=== PATIENT | male | born 1945 | race Caucasian/White ===

== ENCOUNTER → 2021-08-24 09:19 | Outpatient (CLI) | payer MEDICARE, SELFPAY ==
[2021-08-24 13:12] LABS: Influenza Control Positive
[2021-08-24 19:39] LABS: SARS-CoV-2 RNA PCR Negative
== END ==
PROVIDERS: PCP Internal Medicine; Visit Provider Internal Medicine
DX: R09.89 Other specified symptoms and signs involving the circulatory and respiratory systems (principal); Z20.822 Contact with and (suspected) exposure to COVID-19
CPT/HCPCS: 87804; C9803; U0003; U0005

== ENCOUNTER 2021-09-01 12:19 | Outpatient (CLI) | payer MEDICARE, SELFPAY ==
[2021-09-01 13:54] LABS: Influenza A QL RT-PCR Negative (Negative); Influenza B QL RT-PCR Negative (Negative); SARS-CoV-2 RNA PCR Negative (Negative)
== END 2021-09-01 12:20 | disposition home or self-care (01) ==
LOC: CHSLAB 12:23
PROVIDERS: PCP Family Medicine; Visit Provider Internal Medicine
DX: R05.9 Cough, unspecified (principal); Z20.822 Contact with and (suspected) exposure to COVID-19
CPT/HCPCS: 87502; C9803; U0003; U0005

== ENCOUNTER 2022-07-11 01:17 | Day surgery (SDC) | payer MEDICARE, SELFPAY ==
[2022-07-05 11:53] VITALS: BMI 27.6
[2022-07-11 07:28] VITALS: BP 110/67; PULSE 59; RESP 20; TEMP 36.6; O2SAT 100
[2022-07-11 07:53] LABS: Glucose Point of Care 133 mg/dl (65-105)
[2022-07-11] MEDS: LACTATED RINGERS 1,000 ML 150 ML IV CONT (07:53)
--- NOTE | 2022-07-11 08:21 | WPDANESEPPF ---
Anes - Initial Pre Proc Eval Procedure: Operation Date: 07/11/22 08:45 Proposed Procedures p Esophagogastroduodenoscopy & Screening Colonoscopy - Cliff Whyte MD Date/Time: 07/11/22 08:21 Surgeon: Cliff Whyte MD Pre Op Diagnosis: dysphagia, neoplasm screening Patient Data Age: 76 Gender: M Height: 1.85 m Weight: 95.3 kg Last Vital Signs Temp 36.6 C 07/11/22 07:28 Pulse 59 L 07/11/22 07:28 Resp 20 07/11/22 07:28 BP 110/67 07/11/22 07:28 Pulse Ox 100 07/11/22 07:28 O2 Del Method Room Air 07/11/22 07:28 Allergies Allergy/AdvReac Type Severity Reaction Status Date / Time ceftriaxone Allergy Mild Rash Verified 07/11/22 07:37 cephalexin Allergy Mild Rash Verified 07/11/22 07:37 Penicillins Allergy Mild Rash Verified 07/11/22 07:37 Sulfa (Sulfonamide Allergy Mild Rash Verified 07/11/22 07:37 Antibiotics) Home Medications Medication Instructions Recorded Confirmed Type clopidogrel 75 mg tablet (Plavix) 75 mg PO DAILY 06/06/22 07/11/22 History insulin glargine 100 unit/mL (3 45 unit subcut HS 06/06/22 07/11/22 History mL) subcutaneous pen (Lantus Solostar U-100 Insulin) insulin lispro protamine-lispro 1 sliding scale dose subcut 06/06/22 07/11/22 History 100 unit/mL (50-50) subcutaneous USEASDIRECTD susp (Humalog Mix 50-50 Insuln U-100) isosorbide dinitrate 30 mg tablet 30 mg PO DAILY 06/06/22 07/11/22 History lisinopril 5 mg tablet 5 mg PO DAILY 06/06/22 07/11/22 History pantoprazole 40 mg tablet,delayed 40 mg PO QAM 06/06/22 07/11/22 History release rosuvastatin 40 mg tablet (Crestor) 40 mg PO DAILY 06/06/22 07/11/22 History Laboratory Tests 07/11/22 07:48 POC Capillary Glucose 133 mg/dl H mg/dl (65-105) Patient hx anesthesia problems: none Family hx anesthesia problems: none Results Review: All pre-operative results and documents have been reviewed as part of the pre-operative evaluation. [facility] Past Medical History Medical History Bladder cancer CAD (coronary artery disease) Carotid artery disease Cough Diabetes GERD (gastroesophageal reflux disease) Hyperlipidemia Hypertension Peripheral vascular disease TIA (transient ischemic attack) Surgical History Surgical History Status post surgical removal and fulguration of bladder neoplasm Family History Family History Mother Hypertension Family history of elevated blood lipids Family history of diabetes mellitus in first degree relative Father Cerebrovascular accident, Onset Age: 84 Family history of coronary artery disease Patient's father is Social History Social History Smoking status: Never smoker Alcohol intake: current Substance use: never Substance use type: does not use Living arrangements: with family Spiritual care concerns: No Anes - Eval Final PreProcedure Day of Procedure 07/11/22 08:21 Patient weight: overweight Heart: regular rate and rhythm Lungs: clear to auscultation Airway: Mallampati scale class III Neurological: alert and oriented Last oral intake: >/= 8 hours ASA classification: III Emergent: no Anesthetic plan: proceed Anesthesia type and monitoring: general GIVS and standard monitoring Results Review: All pre-operative results and documents have been reviewed as part of the pre-operative evaluation. Informed Consent: The patient's anesthetic plan and its attendant risks and benefits were discussed with the patient/family/POA. Questions were solicited and answers provided to the satisfaction of the patient/family/POA.
--- NOTE | 2022-07-11 08:39 | PM.HPGS ---
History of Present Illness History of Present Illness Consent: Risks, benefits, and alternatives have been discussed and questions answered. Patient agrees to proceed with procedure. Chief complaint: dysphagia, neoplasm screening Narrative: Kaushik Anthony is a 76 year old male with choking after eating, using pantoprazole for gerd, he is also due to have screening colonoscopy Review of Systems Constitutional: Constitutional: Denies headache(s) and Denies weakness Eyes: Eyes: Denies blurry vision ENT: Reports Normal hearing present, Denies headache(s) and Denies neck pain Cardiovascular: Cardiovascular: Denies chest pain and Denies dyspnea Respiratory: Respiratory: Denies dyspnea Gastrointestinal: Gastrointestinal: Reports no additional gastrointestinal complaints Genitourinary: Genitourinary: Denies dysuria Musculoskeletal: Musculoskeletal: Denies neck pain Integumentary/Breasts: Skin/Breast: Denies dry skin Neurologic: Reports Normal hearing present, Denies headache(s) and Denies weakness Psychiatric: Psychiatric: Denies anxiety Endocrine: Endocrine: Denies change in body appearance Hematologic/Lymphatic: Hematologic/Lymphatic: Denies easy bleeding Allergic/Immunologic: Allergic/Immunologic: Denies urticaria PMFSH Past Medical History Medical History (Updated 07/11/22 @ 08:40 by Cliff Whyte MD) Bladder cancer CAD (coronary artery disease) Carotid artery disease Choking Colon cancer screening Cough Diabetes GERD (gastroesophageal reflux disease) Hyperlipidemia Hypertension Peripheral vascular disease TIA (transient ischemic attack) Surgical History Surgical History Status post surgical removal and fulguration of bladder neoplasm Family History Family History Mother Hypertension Family history of elevated blood lipids Family history of diabetes mellitus in first degree relative Father Cerebrovascular accident, Onset Age: 84 Family history of coronary artery disease Patient's father is Social History Social History Smoking status: Never smoker Alcohol intake: current Substance use: never Substance use type: does not use Living arrangements: with family Spiritual care concerns: No Meds Home Medications and Allergies Home Medications Medication Instructions Recorded Confirmed Type clopidogrel 75 mg tablet (Plavix) 75 mg PO DAILY 06/06/22 07/11/22 History insulin glargine 100 unit/mL (3 45 unit subcut HS 06/06/22 07/11/22 History mL) subcutaneous pen (Lantus Solostar U-100 Insulin) insulin lispro protamine-lispro 1 sliding scale dose subcut 06/06/22 07/11/22 History 100 unit/mL (50-50) subcutaneous USEASDIRECTD susp (Humalog Mix 50-50 Insuln U-100) isosorbide dinitrate 30 mg tablet 30 mg PO DAILY 06/06/22 07/11/22 History lisinopril 5 mg tablet 5 mg PO DAILY 06/06/22 07/11/22 History pantoprazole 40 mg tablet,delayed 40 mg PO QAM 06/06/22 07/11/22 History release rosuvastatin 40 mg tablet (Crestor) 40 mg PO DAILY 06/06/22 07/11/22 History Allergies Allergy/AdvReac Type Severity Reaction Status Date / Time ceftriaxone Allergy Mild Rash Verified 07/11/22 07:37 cephalexin Allergy Mild Rash Verified 07/11/22 07:37 Penicillins Allergy Mild Rash Verified 07/11/22 07:37 Sulfa (Sulfonamide Allergy Mild Rash Verified 07/11/22 07:37 Antibiotics) Vital Signs Vital Signs - 24 hr 07/11/22 07:28 Temperature 97.8 F Pulse Rate 59 L Respiratory Rate 20 Blood Pressure 110/67 Pulse Oximetry 100 Oxygen Delivery Room Air Exam Const: General: comfortable and no acute distress HENMT: Face/Nose/Sinus: Normal nares present Eyes: General: appearance normal, both eyes and all related structures Neck: Neck: no JVD Resp: Aus
--- NOTE | 2022-07-11 08:57 | SUR.OPER ---
EGD start 848 end 852, Colonoscopy start 858 end 927
[2022-07-11 09:36] VITALS: BP 113/67; PULSE 53; RESP 16; O2SAT 98
[2022-07-11 09:46] VITALS: BP 111/70; PULSE 55; RESP 18; O2SAT 98
[2022-07-11 09:56] VITALS: BP 123/72; PULSE 56; RESP 18; O2SAT 98
[2022-07-11 10:07] LABS: Glucose Point of Care 120 mg/dl (65-105)
== END 2022-07-11 10:12 | disposition home or self-care (01) ==
PROVIDERS: PCP Family Medicine; Visit Provider Internal Medicine Gastroenterology
PROC: 0DJ08ZZ Inspection of Upper Intestinal Tract, Via Natural or Artificial Opening Endoscopic (ICD-10-PCS; CPT 43235; principal; 2022-07-11 08:45)
DX: Z12.11 Encounter for screening for malignant neoplasm of colon (principal); R13.10 Dysphagia, unspecified; K44.9 Diaphragmatic hernia without obstruction or gangrene; K21.9 Gastro-esophageal reflux disease without esophagitis; K29.70 Gastritis, unspecified, without bleeding; K31.7 Polyp of stomach and duodenum; Z85.51 Personal history of malignant neoplasm of bladder; I25.10 Atherosclerotic heart disease of native coronary artery without angina pectoris; I10 Essential (primary) hypertension; E78.5 Hyperlipidemia, unspecified; E11.51 Type 2 diabetes mellitus with diabetic peripheral angiopathy without gangrene; Z86.73 Personal history of transient ischemic attack (TIA), and cerebral infarction without residual deficits; Z79.02 Long term (current) use of antithrombotics/antiplatelets; Z79.4 Long term (current) use of insulin
CPT/HCPCS: 43239; G0121; 82948; 88305; J2704; J7120